=== PATIENT | male | born 1995 | race Caucasian/White ===

== ENCOUNTER 2021-07-07 06:00 | Day surgery (SDC) | payer OTHER ==
[2021-07-05 15:21] VITALS: BMI 25.9
[2021-07-07] MEDS ORDERED: LOCK ITEM NR ONE (06:33)
[2021-07-07] MEDS ORDERED: SUCCINYLCHOLINE CHLORIDE 200 MG/10 ML SYRINGE ONE (07:21)
[2021-07-07] MEDS ORDERED: MIDAZOLAM HCL 2 MG/2 ML SINGLE DOSE VIAL ONE ×3 (07:21→07:48)
[2021-07-07] MEDS ORDERED: PROPOFOL 20 ML ONE ×3 (07:21→08:20)
[2021-07-07] MEDS ORDERED: ROPIVACAINE HCL 0.5% 30ML VIAL ONE (07:22)
[2021-07-07] MEDS ORDERED: DEXAMETHASONE SOD PHOSPHATE 10 MG/1 ML VIAL ONE (07:22)
[2021-07-07] MEDS ORDERED: EPINEPHrine 1:1,000 1 MG/1 ML - 30ML VIAL (INJECTION) ONE (07:31)
[2021-07-07] MEDS ORDERED: ceFAZolin SODIUM 1 GM VIAL ONE (08:21)
[2021-07-07] MEDS ORDERED: DEXAMETHASONE SOD PHOSPHATE 4 MG/1 ML VIAL ONE (08:21)
[2021-07-07] MEDS ORDERED: ONDANSETRON 4 MG/2 ML VIAL ONE (08:21)
[2021-07-07] MEDS ORDERED: TRANEXAMIC ACID 1000 MG/10 ML VIAL ONE (08:43)
[2021-07-07] MEDS ORDERED: ONDANSETRON 4 MG/2 ML VIAL IVPUSH PRN (10:58)
[2021-07-07] MEDS ORDERED: oxyCODONE HCL 5 MG TABLET PO PRN (10:58)
[2021-07-07] MEDS ORDERED: LACTATED RINGERS SOLUTION 1,000 ML IV SCH (11:00)
[2021-07-07 13:17] VITALS: TEMP 97.8
[2021-07-07 15:38] VITALS: BP 132/79; PULSE 70
== END 2021-07-07 14:15 | disposition home or self-care (01) ==
LOC: FASU 06:00
PROVIDERS: ATTEND Orthopaedic Surgery Sports Medicine
PROC: 0RSH0ZZ Reposition Left Acromioclavicular Joint, Open Approach (ICD-10-PCS; principal; 2021-07-07 08:37)
DX: S43.132A Dislocation of left acromioclavicular joint, greater than 200% displacement, initial encounter (principal); W19.XXXA Unspecified fall, initial encounter; Y93.9 Activity, unspecified; Y92.9 Unspecified place or not applicable
CPT/HCPCS: 73030-TC-LT-FY; 94760; J1100